=== PATIENT | female | born 1940 | race Caucasian/White ===

== ENCOUNTER 2017-02-19 11:08 | Observation (INO) | payer MEDICARE ==
[~2017-02-19] VITALS: Ht 165.1 cm; Wt 99.8 kg
[~2017-02-19 11:08] MED LIST: ASPIRIN CHEWABL81 MG PO; ATIVAN0.5 MG PO; CALCITRIOL0.25 MCG PO; ELIQUIS 5 MG TAB5 MG PO; HUMALOG MI100 UNIT/4 SQ; HYDRALAZINE HCL50 MG PO; LASIX20 MG PO; LEVOTHYROXINE75 MCG PO; METOPROLOL SUCC25 MG PO; MULTAQ 400 MG400 MG PO; MULTIVITAMINS1 EAC1 PO; NEURONTIN 300300 MG PO; PRAVACHOL20 MG PO; PRILOSEC OTC20 MG PO; ULTRAM50 MG PO; VITAMIN D22000 UNIT PO; VITAMIN D250000 UNIT PO
[2017-02-19 12:18] LABS: HEMOGLOBIN 10.3 gm/dl (12.3-15.3); RED BLOOD COUNT 3.72 M/UL (4.00-5.10); WHITE BLOOD COUNT 6.8 K/UL (4.5-11.0)
[2017-02-19] MEDS ORDERED: CATAPRES 0.1MG0.1 MG PO (17:50)
[2017-02-20 04:22] LABS: HEMOGLOBIN 9.7 gm/dl (12.3-15.3); RED BLOOD COUNT 3.57 M/UL (4.00-5.10); WHITE BLOOD COUNT 5.6 K/UL (4.5-11.0)
[2017-02-20] MEDS ORDERED: NITROSTAT0.4 MG SL (10:32)
== END 2017-02-20 11:40 | disposition home or self-care (01) ==
LOC: ER1 11:08 → ZEROF 13:30 → MED SURG 4 13:30
PROVIDERS: Student in an Organized Health Care Education/Training Program; ADMIT Internal Medicine
DX: R07.89 Other chest pain (principal); I13.0 Hypertensive heart and chronic kidney disease with heart failure and stage 1 through stage 4 chronic kidney disease, or unspecified chronic kidney disease; I50.30 Unspecified diastolic (congestive) heart failure; D63.1 Anemia in chronic kidney disease; E11.22 Type 2 diabetes mellitus with diabetic chronic kidney disease; N18.3 Chronic kidney disease, stage 3 (moderate); I25.10 Atherosclerotic heart disease of native coronary artery without angina pectoris; I48.0 Paroxysmal atrial fibrillation; E03.9 Hypothyroidism, unspecified; R00.1 Bradycardia, unspecified; E66.9 Obesity, unspecified; K21.9 Gastro-esophageal reflux disease without esophagitis; M19.90 Unspecified osteoarthritis, unspecified site; Z98.61 Coronary angioplasty status; Z79.01 Long term (current) use of anticoagulants; Z79.82 Long term (current) use of aspirin; Z79.52 Long term (current) use of systemic steroids; Z79.891 Long term (current) use of opiate analgesic; Z79.899 Other long term (current) drug therapy; Z87.19 Personal history of other diseases of the digestive system; Z86.73 Personal history of transient ischemic attack (TIA), and cerebral infarction without residual deficits; Z88.2 Allergy status to sulfonamides
CPT/HCPCS: ECHO; 36415; 71010; 80048; 80053; 80061; 82550; 82553; 82962; 83036; 83735; 83874; 83880; 84484; 85025; 85027; 93005; 93306; 99285; G0378; J0360